=== PATIENT | male | born 1990 | race Caucasian/White ===

== ENCOUNTER → 2021-03-26 16:22 | Outpatient (CLI) | payer SELFPAY ==
--- NOTE | 2021-03-26 16:28 | US_ITS ---
STUDY: SCROTUM ULTRASOUND REASON FOR EXAM: Male, 31 years old. SORENESS and 2 TINY PALP BUMPS ON RT SCROTUM PER PT TECHNIQUE: Ultrasound evaluation of the scrotum was performed with color Doppler and static granda-scale imaging. COMPARISON: None. FINDINGS: RIGHT TESTICLE INTRATESTICULAR: There is a normal size of the right testicle. The right testicle measures 4.6 x 2.8 x 1.7 cm. There is a homogenous echotexture. There is normal arterial and normal venous vascularity. There is no demonstrated right testicular mass or cyst. There are 2 tiny nodular densities which appear to be extrinsic to the testis possibly within the anterior scrotal wall measuring 3 x 3 x 2 mm and 2 x 2 by 1 mm of uncertain etiology or clinical significance EXTRATESTICULAR: The epididymis is normal in size. The epididymis head measures 0.8 x 0.8 x 0.6 cm. There is normal vascularity of the epididymis. There is no demonstrated epididymal cystic structure. There is a small hydrocele. There is no demonstrated varicocele. There is no demonstrated extratesticular mass or cyst. LEFT TESTICLE INTRATESTICULAR: There is a normal size of the left testicle. The left testicle measures 4.5 x 2.9 x 1.3 cm. There is a homogenous echotexture. There is normal arterial and normal venous vascularity. There is no demonstrated left testicular mass or cyst. EXTRATESTICULAR: The epididymis is normal in size. The epididymis head measures 1 x 0.7 x 0.6 cm. There is normal vascularity of the epididymis. Tiny epididymal cyst measuring 0.3 x 0.2 x 0.2 cm. There is no demonstrated hydrocele. There is no demonstrated varicocele. There is no demonstrated extratesticular mass or cyst. US/Testicular with Arterial Flow IMPRESSION: No evidence for testicular mass or torsion.. 2 tiny subcentimeter nodular densities extrinsic to the right testis possibly within the anterior scrotal wall of uncertain etiology or clinical significance Electronically Signed: John Gibson MD at 17:15 EDT , Service support ,
== END ==
PROVIDERS: PCP Family Medicine; Visit Provider Family Medicine
DX: N43.3 Hydrocele, unspecified (principal); N50.89 Other specified disorders of the male genital organs
CPT/HCPCS: 76870; 93976